=== PATIENT | female | born 1985 | race Hispanic/Latino ===

== ENCOUNTER 2017-02-09 13:41 | Emergency (ER) | payer OTHER ==
[2017-02-09 13:41] VITALS: BMI 33.2
[2017-02-09 13:57] VITALS: RESP 18; TEMP 98.2
--- NOTE | 2017-02-09 14:39 | C.PDOC ---
History Of Present Illness 31 yr old female with , LMP 12/04/16, (+) care with , presents to the ER for evaluation of vaginal spotting for the 3 days. Otherwise , patient denies active vaginal bleeding at this time, Denies fever, chills, headache, dizziness, CP, SOB, dyspnea, nausea, vomiting, abdominal pain, dysuria , back pain, hematuria. Ambulate to ED for evaluation, not in any apparent distress. Time Seen by Provider: 02/09/17 14:21 Chief Complaint (Nursing): Female Genitourinary History Per: Patient History/Exam Limitations: no limitations Onset/Duration Of Symptoms: Days (3) Past Medical History Reviewed: Historical Data, Nursing Documentation, Vital Signs Vital Signs: Last Vital Signs Temp 98.2 F 02/09/17 13:55 Pulse 101 H 02/09/17 16:45 Resp 18 02/09/17 16:45 BP 125/82 02/09/17 16:45 Pulse Ox 97 02/09/17 16:45 - [employer] INJECT/INFUSE NEC (09/29/13) Family History: States: No Known Family Hx - Social History Hx Tobacco Use: No Hx Alcohol Use: No Hx Substance Use: No - Immunization History Hx Tetanus Toxoid Vaccination: No Hx Influenza Vaccination: No Hx Pneumococcal Vaccination: No Review Of Systems Except As Marked, All Systems Reviewed And Found Negative. Constitutional: Negative for: Fever, Chills Gastrointestinal: Negative for: Nausea, Vomiting, Abdominal Pain Genitourinary: Positive for: Vaginal Bleeding (Spotting. No active bleeding.). Negative for: Dysuria Neurological: Negative for: Weakness, Numbness Physical Exam - Physical Exam Appears: Non-toxic, No Acute Distress Skin: Warm, Dry, No Rash Eye(s): bilateral: PERRL Nose: No Flaring, No Discharge Oral Mucosa: Moist, No Drooling Throat: No Drooling Neck: Supple Cardiovascular: Rhythm Regular, No Murmur, No JVD Respiratory: No Decreased Breath Sounds, No Accessory Muscle Use, No Rales, No Rhonchi, No Stridor, No Wheezing Gastrointestinal/Abdominal: Soft, No Tenderness, No Distention, No Guarding, No Rebound Back: No CVA Tenderness Extremity: Normal ROM, No Pedal Edema, No Swelling Neurological/Psych: Oriented x3, Normal Speech ED Course And Treatment - Laboratory Results Result Diagrams: 02/09/17 15:15 02/09/17 15:15 Lab Interpretation: Normal Urine POC: Positive O2 Sat by Pulse Oximetry: 100 (RA) Pulse Ox Interpretation: Normal - CT Scan/US US - Transvaginal Other Rad Studies (CT/US): Read By Radiologist, Radiology Report Reviewed CT/US Interpretation: Indication: Vaginal bleeding. Comparison: None available. Technique: Real-time transabdominal pelvic ultrasound was performed. In addition a transvaginal pelvic ultrasound was necessary to better depict pelvic anatomy. Findings: The uterus measures approximately 10.8 x 6.8 x 6.8 cm. Anteverted. Probable posterior uterine fibroid measures approximately 2.0 x 1.2 x 1.7 cm. There is a single intrauterine fetus present. The gestational sac measures 2.6 cm and is compatible with a gestational age of 7 weeks 3 days. No yolk sac or pole identified. The right ovary measures 3.4 x 2.4 x 3.2 cm. The left ovary measures 2.9 x 1 point by 2.4 cm. Blood flow was demonstrated to both ovaries. Impression: Intrauterine gestational sac consistent with gestational age calculation 7 weeks 3 days. No yolk sac or pole identified. Recommend correlation with quantitative beta HCG, [employer]PRESENTATIVE consultation, and follow-up as indicated. 2 cm posterior uterine fibroid. Progress Note: On re-evaluation, pt is afebrile, hemodynamicaly stable. Non- toxic. ABd: benign. Back: (-) CVA tenderness. Blood work review, apears without acute abnormalities. Upreg (+). Blood type O positive. US results review and c/w 7wks, (+) IUP. Beta quant c/w US results. Results review with patient, compare to US from 01/01/17. Pt has clinical findings c/w threatened . Pt advised onc ourse, ref. to F/u with ED in 2 days to repeat beta and/or F/U with OB for re-evaluation and further treatment. Pt understand, stable for discharge now. Medical Decision Making Medical Decision Making: PLAN: * US - Transvaginal * CBC * BMP * HCG * Urinalysis Disposition Counseled Patient/Family Regarding: Studies Performed, Diagnosis, Need For Followup - Disposition Referrals: Gloria Darden MD [Staff Provider[facility]] Disposition: HOME/ ROUTINE Disposition Time: 15:54 Condition: STABLE Additional Instructions: PELVIC REST FOR 1 WEEK RETURN TO ED IN 2 DAYS TO REPEAT BETA QUANTITATIVE FOLLOW UP WITH OB IN 2-3 DAYS FOR RE-EVALUATION. RETURN TO ED IF ANY WORSENING OR NEW CHANGES. Instructions: Threatened Miscarriage (ED) Forms: Work/School/Gym Excuse, [facility] (Erit[place]an), Work Excuse - Clinical Impression Clinical Impression: Threatened - PA / RADIOLOGY ORDERLY / Resident Statement MD/DO has reviewed & agrees with the documentation as recorded. - Scribe Statement The provider has reviewed the documentation as recorded by the Scribe Cristal Stevens All medical record entries made by the Carolibe were at my direction and personally dictated by me. I have reviewed the chart and agree that the record accurately reflects my personal performance of the history, physical exam, medical decision making, and the department course for this patient. I have also personally directed, reviewed, and agree with the discharge instructions and disposition.
[2017-02-09 15:22] LABS: BASO # 0.1 K/uL (0.0-0.2); BASO % 0.7 % (0.0-2.0); EOS % 0.5 % (0.0-4.0); HEMATOCRIT 43.1 % (34.0-47.0); LYMPH # 1.6 K/uL (1.0-4.3); LYMPH % 18.4 % (20.0-40.0); MEAN CELL VOLUME 87.7 fL (81.0-99.0); MEAN CORPUSCULAR HEMOGLOBIN 29.4 pg (27.0-31.0); MEAN CORPUSCULAR HGB CONC 33.5 g/dL (33.0-37.0); MONO # 0.9 K/uL (0.0-0.8); MONO % 9.7 % (0.0-10.0); NRBC % 0.7 % (0.0-2.0); RED CELL DISTRIBUTION WIDTH 14.1 % (11.5-14.5); WHITE BLOOD COUNT 8.8 K/uL (4.8-10.8)
[2017-02-09 15:30] LABS: INR 1.1
[2017-02-09 15:34] LABS: CALCIUM 8.5 mg/dl (8.6-10.4); GFR AFRICAN-AMERICAN > 60
[2017-02-09 15:36] LABS: BLOOD UREA NITROGEN 10 mg/dL (7-17); CARBON DIOXIDE 26 mmol/L (22-30); CHLORIDE 99 mmol/L (98-107); GLUCOSE,RANDOM 89 mg/dL (65-105); POTASSIUM 5.1 mmol/L (3.6-5.2); SODIUM 134 mmol/L (132-148)
--- NOTE | 2017-02-09 16:01 | US ---
Indication: Vaginal bleeding Comparison: None available Technique: Real-time transabdominal pelvic ultrasound was performed. In addition a transvaginal pelvic ultrasound was necessary to better depict pelvic anatomy. Findings: The uterus measures approximately 10.8 x 6.8 x 6.8 cm. Anteverted. Probable posterior uterine fibroid measures approximately 2.0 x 1.2 x 1.7 cm. There is a single intrauterine fetus present. The gestational sac measures 2.6 cm and is compatible with a gestational age of 7 weeks 3 days. No yolk sac or pole identified. The right ovary measures 3.4 x 2.4 x 3.2 cm. The left ovary measures 2.9 x 1 point by 2.4 cm. Blood flow was demonstrated to both ovaries. Impression: Intrauterine gestational sac consistent with gestational age calculation 7 weeks 3 days. No yolk sac or pole identified. Recommend correlation with quantitative beta HCG, GAMING MANAGER consultation, and follow-up as indicated. 2 cm posterior uterine fibroid.
[2017-02-09 16:37] LABS: RBC URINE 6 /hpf (0-3); URINE BACTERIA RARE (<OCC); URINE BILIRUBIN NEGATIVE (NEGATIVE); URINE COLOR Yellow (YELLOW); URINE GLUCOSE (UA) NORMAL (Normal); URINE KETONE NEGATIVE (NEGATIVE); URINE LEUKOCYTE ESTERASE NEG Leu/uL (Negative); URINE PROTEIN NEGATIVE (NEGATIVE); URINE UROBILINOGEN NORMAL mg/dL (0.2-1.0); WBC URINE 2 /hpf (0-5)
[2017-02-09 16:41] LABS: URINE BLOOD 2+ (NEGATIVE)
[2017-02-09 16:47] VITALS: BP 125/82; PULSE 101
[2017-02-09 17:29] VITALS: O2SAT 100
== END 2017-02-09 16:47 | disposition home or self-care (01) ==
LOC: C.ER 13:41
DX: O20.0 Threatened abortion (principal); Z3A.01 Less than 8 weeks gestation of pregnancy